=== PATIENT | female | born 1960 | race Hispanic/Latino ===

== ENCOUNTER → 2021-11-06 13:42 | Outpatient (CLI) | payer OTHER, SELFPAY ==
--- NOTE | 2021-11-06 13:44 | DI.NM.S_ITS ---
PROCEDURE: NM EXERCISE TREADMILL NON NUC COMPARISON: None. INDICATIONS: Chest pain, unspecified FINDINGS: The patient exercised for 71% of maximum predicted heart rate. Appropriate BP response to exercise. Good exercise capacity (10.1 METs, JOSE ANTONIO -8%). No angina during the study. Mild horizontal ST depressions in the inferior and anterolateral leads with exercise. No significant ectopy. IMPRESSION: Abnormal, submaximal stress test given mild horizontal ST depressions in the inferior and anterolateral leads and only 71% of maximum predicted heart rate achieved. No angina during the study. Recommend treadmill nuclear stress test at [facility] for further evaluation. Dictated by: Haven Morgan MD on 11/10/2021 at 12:56 Approved by: Haven Morgan MD on 11/10/2021 at 13:01
[2021-11-06 15:23] LABS: COVID19 -Nasal RAPID Negative (Negative)
== END ==
PROVIDERS: Referring Provider Physician Assistant; Visit Provider Physician Assistant
DX: R07.9 Chest pain, unspecified (principal); R05.9 Cough, unspecified; R60.0 Localized edema; Z20.822 Contact with and (suspected) exposure to COVID-19
CPT/HCPCS: 87635; 93017

== ENCOUNTER → 2022-08-16 07:24 | Outpatient (CLI) | payer OTHER, SELFPAY ==
--- NOTE | 2022-08-16 | DI.NM.S_ITS ---
PROCEDURE: NM SULLY PERF SPECT REST & STR Rest and exercise myocardial perfusion SPECT with gated imaging and ejection fraction RADIOPHARMACEUTICAL: 12.2 mCi Tc-99m sestamibi IV at rest and 25.2 mCi Tc-99m sestamibi IV at peak exercise. A [id number] was performed. INDICATIONS: Chest pain, unspecified TECHNIQUE: Radiopharmaceutical was injected at peak stress test, and also at rest. SPECT images were obtained. SPECT myocardial perfusion images were displayed in short axis, horizontal long axis, and vertical long axis views. Gated images were reviewed using [employer] software. COMPARISON: None. CARDIAC STRESS: A standard Eben treadmill exercise tolerance test was performed by the patient under the supervision of an attending staff. The patient exercised for 7 minutes and 24 seconds; 7.5 METS; functional aerobic impairment (JOSE ANTONIO) is -8%. Hemodynamic data: There is normal blood pressure and heart rate response to exercise stress. Patient achieved 84% of maximum predicted heart rate at peak exercise. Maximum blood pressure 182/84. Symptoms: Patient denied chest pain during exercise. EK to 1.5 mm horizontal to upsloping ST segment depressions II, III, aVF and V3 through V6; no ectopy. FINDINGS: Raw data: There is good myocardial labeling by radiotracer. No significant motion artifacts. Jlnj-sl-bzqdz ratio is 0.37 (normal is less than 0.38 for sestamibi tracer, and less than 0.50 for thallium tracer). Left ventricle function: Gated images demonstrate normal left ventricle wall thickening. No segmental wall motion abnormality. No transient ischemic dilation; TID is 0.73 (normal less than 1.3). The left ventricle resting end-diastolic volume is 80 mL. Left ventricle stress ejection fraction is >75%; normal values are above 45%. Myocardial perfusion: There is a large size, moderate intensity fixed anterior wall defect that completely resolves in prone imaging. No reversible perfusion defects. IMPRESSION: Low risk study. No inducible ischemia on SPECT images. The large size, moderate intensity fixed anterior wall defect completely resolves in prone imaging making this most consistent with attenuation artifact. Normal LV size with hyperdynamic function. Abnormal exercise ECG likely false positive in the setting of normal perfusion. Normal hemodynamic response. Good exercise capacity. Dictated by: Verena Jaimes D.O. on 08/16/2022 at 17:21 Approved by: Verena Jaimes D.O. on 08/16/2022 at 17:28
== END ==
PROVIDERS: Referring Provider Internal Medicine Cardiovascular Disease; Visit Provider Internal Medicine Cardiovascular Disease
DX: R07.9 Chest pain, unspecified (principal); R94.39 Abnormal result of other cardiovascular function study
CPT/HCPCS: 78452; 93017; A9502